=== PATIENT | female | born 1980 | race Hispanic/Latino ===

== ENCOUNTER 2020-04-03 09:36 | Emergency (ER) | payer OTHER ==
[~2020-04-03] VITALS: Ht 157.5 cm; Wt 81.0 kg
[~2020-04-03 09:36] MED LIST: ATORVASTATIN CA20 MG PO; CEPHALEXIN500 MG PO; FLEXERIL PO; MECLIZINE25 MG PO; NAPROSYN500 MG PO; NEXIUM40 M1 PO; OMEPRAZOLE20 MG PO; PRENATAL1 TA1 PO; TUMS500 MG PO; VITAMIN D32000 UNIT PO
[2020-04-03] MEDS ORDERED: HYDROCO/APAP1 TA9 PO (11:48)
[2020-04-03] MEDS ORDERED: IBUPROFEN600 MG PO (11:48)
[2020-04-03 12:07] VITALS: BP 134/56
== END 2020-04-03 11:59 | disposition home or self-care (01) ==
LOC: ED 09:36
DX: S82.61XA Displaced fracture of lateral malleolus of right fibula, initial encounter for closed fracture (principal); X50.0XXA Overexertion from strenuous movement or load, initial encounter; X50.9XXA Other and unspecified overexertion or strenuous movements or postures, initial encounter